=== PATIENT | male | born 1980 | race Caucasian/White ===

== ENCOUNTER 2023-03-03 14:58 | Inpatient (IN) ==
--- NOTE | 2023-03-03 15:44 | ED Triage Note ---
Date of Service March 03, 2023 Provider in Triage Author: Cassidy Virk History of Present Illness This patient was briefly evaluated while in triage. An abbreviated physical exam was performed. This patient is a 42-year-old Male who presents to the ED for evaluation of hematemesis, since 12 today. States vomit starts as black then progresses to BRB. Physical Exam CONSTITUTIONAL: in no acute pain or distress, resting comfortably SKIN: pink, warm, dry CARDIAC: regular rate and rhythm RESPIRATORY: in no respiratory distress, lungs clear to auscultation ABDOMEN: + TTP MSK: 5/5 strength throughout NEURO: no neuro deficits, alert and oriented x 3 Initial orders for labs and / or imaging were placed and patient was placed in the waiting area until a bed is available. Please see further documentation for the full ED course.
[2023-03-03 16:12] LABS: iSTAT Creatinine 0.9 mg/dl (0.6-1.3); iSTAT Hemoglobin 16.7 g/dl (14.0-18.0); iSTAT Ionized Calcium 1.13 mmol/l (1.12-1.32); iSTAT Potassium 3.7 mmol/L (3.3-5.0)
[2023-03-03] MEDS ORDERED: OPTIRAY 320 500ml IV ONE (16:14)
[2023-03-03 16:27] LABS: Basophils # (auto) 0.08 K/uL (0.00-0.20); Basophils % (auto) 0.7 %; Eosinophils # (auto) 0.01 K/uL (0.00-0.50); Eosinophils % (auto) 0.1 %; Hematocrit (blood only) 47.6 % (42.0-52.0); Hemoglobin 15.5 g/dl (14.0-18.0); Immature Granulocytes # (auto) 0.06 K/uL (0.01-0.20); Immature Granulocytes % (auto) 0.5 %; Mean Corpuscular Hemoglobin 27.8 pg (25.0-34.0); Mean Corpuscular Hgb Conc 32.6 g/dL (32.0-36.0); Mean Corpuscular Volume 85.5 fL (80.0-100.0); Mean Platelet Volume 10.9 fL (9.4-12.4); Monocytes # (auto) 0.48 K/uL (0.11-0.59); Neutrophils # (auto) 9.82 K/uL (1.40-6.50); Neutrophils % (auto) 80.7 %; Platelet Count 253 K/uL (130-400); RDW Coefficient of Variation 13.7 % (11.5-14.5); RDW Standard Deviation 42.8 fL (36.4-46.3); Red Blood Count 5.57 M/uL (4.70-6.10); White Blood Count 12.15 K/ul (4.8-10.8)
[2023-03-03 16:35] LABS: Albumin Globulin Ratio 1.7 (0.9-2); Albumin Level 4.5 gm/dl (3.4-5.0); BUN Creatinine Ratio 11.8 (10-20); Bilirubin,Total 0.8 mg/dl (0.2-1.0); Calcium 9.2 mg/dl (8.6-10.3); Creatinine Clr Calc Pharmacy 95.1 ml/min; Est GFR (African American) 103.9 ml/min; Est GFR (Non-African American) 89.6 ml/min; Globulin 2.7 gm/dl (2.5-4.0); Potassium 3.6 mmol/L (3.5-5.1); Total Protein 7.2 gm/dl (6.0-8.3)
--- NOTE | 2023-03-03 16:38 | CT Scan Report ---
CT abd pelvis IV con only CLINICAL HISTORY: Hematemesis TECHNIQUE: Helical axial images of the abdomen and pelvis were obtained and displayed. Automated dose lowering techniques and/or adjustment according to patient size were utilized for this exam. This e xam was performed with intravenous contrast. CT DOSE: 601. mGy.cm COMPARISON: None available at the time of this dictation. FINDINGS: Lower chest: No acute abnormality. Liver: Subcentimeter hypodensities in the liver are too small to characterize. Gallbladder and biliary tree: No calcified gallstones. Normal caliber wall. No intra- or extrahepatic biliary ductal dilation. Pancreas: Unremarkable, no focal lesions. Spleen: Unremarkable. Adrenals: Unremarkable. Kidneys and ureters: Unremarkable. Bladder: Diffuse homogeneous wall thickening is seen. Reproductive organs: Unremarkable. Bowel: The appendix is normal. Lymph nodes Retroperitoneal: Unremarkable. Pelvic: Unremarkable. Mesenteric: Unremarkable. Peritoneum: Normal. Vessels: Unremarkable. Abdominal wall: Unremarkable. Bones: Unremarkable. IMPRESSION: Thickening of the bladder is seen, correlation with urinalysis is recommended to exclude UTI. No evid ence of bowel obstruction or definite CT evidence of GI bleed. ACT 112: Negative or not required by law. Electronically signed by: Simeon Jones M.D. 03/03/2023 4:35 PM
[2023-03-03 16:46] LABS: Prothrombin Time 11.1 Seconds (9.0-12.0)
[2023-03-03] MEDS ORDERED: PANTOprazole 80 MG in DEXTROSE 5% 100 ML IV ONE (16:49)
[2023-03-03] MEDS ORDERED: PANTOPRAZOLE BOLUS/DRIP IV STA (16:49)
--- NOTE | 2023-03-03 17:10 | History & Physical Report ---
Date of Service March 03, 2023 Assessment & Plan (1) Vomiting blood: Plan: Coffee-ground, red emesis started at 1200 on 03/03 Patient reports he woke up feeling fine, and that he is unsure what triggered it; no prior episodes like this Patient denies NSAID, alcohol use; endorses marijuana use last night Hgb 15.5 and HCT 47.6 on arrival Repeat H&H ordered, pending Abdomen/pelvic CT revealed NAF (no CT evidence of GI bleed) LFTs WNL PT/INR WNL Lipase WNL BUN/Cr 11.8 Keep n.p.o. for now Started on pantoprazole drip in the ED Continue pantoprazole 40 mg IV BID Zofran 4 mg IV q6h as needed for nausea; QTc 397 Acetaminophen 1000 mg IV q8h as needed for pain/fever A.m. CBC, BMP (2) Bradycardia: Plan: EKG revealed marked sinus bradycardia at 40 bpm; QTc 397 Plan [facility]: [facility] Keep n.p.o. for now, then advance to liquid diet as tolerated VTE PPx: SCDs (hold chemical DVT PPx in the setting of ground coffee emesis) History of Present Illness Chief Complaint: Acute onset of coffee-ground emesis Primary Care Provider: NO PCP Joaquin is a 72-year-old male without significant PMH. He presented for vomiting blood that started around 1200 on 03/03. The patient reports that the emesis is "coffee-ground" in appearance initially, but then became bright red. He has had no prior experiences like this. No recent changes in diet. He reports that he had chicken and waffles the night of 03/02, and woke up fine the morning of 03/03. He had no food on 03/03, only coffee. No recent NSAID use. No sick contacts. No tick bites. No alcohol use. Patient is an everyday tobacco cigarette smoker; 0.5 PPD; no vaping; however, he endorses occasional marijuana use, with last use being last night. No history of throwing up from marijuana use. He denies other recreational drug use. Endorses ongoing epigastric pain and nausea since the onset of symptoms. Patient is bradycardic at 43 bpm at time of admission; vitals otherwise stable. ED course: Pantoprazole 40 mg IV Protonix drip ROS: Patient endorses BASS before bed the past couple nights, epigastric pain, N/V, hematemesis, diarrhea (started today at 1100), Patient denies fever, sweating, chills, rashes, bruising, CP, pleuritic CP, SOB, constipation, back pain, blood in stool, urinary s/s, burning with urination, or numbness/tingling going down the legs. Patient denies PMH of SC, DVT/PE, CVA, diabetes, or prior abdominal surgeries Allergies Allergy/AdvReac Type Severity Reaction Status Date / Time No Known Allergies Allergy Unverified 03/03/23 18:12 Home Medications Medication Instructions Recorded Confirmed Type No Known Home Medications 03/03/23 03/03/23 History Past Med/Surg History Medical History No pertinent past medical history No pertinent family history Surgical History No pertinent past surgical history Social History Smoking Status: Current every day smoker Tobacco Type: Cigarettes Second Hand Exposure: No; Do You Dip or Chew Tobacco: No; Tobacco Cessation Education Requested by Patient: No Hx Alcohol Use: No Hx Substance Use: Yes Last Used Substance: Days (ago) Preferred Language: Yoruba Communication Ability: Effective Skull Grinder Required: No Beliefs That Will Affect Care: None Current Living Situation: Family Other Information That Helps Us Care for You: No Feels Safe at Home: Yes Safety Concerns: Feels Safe At This Time Assistive Devices: None Review of Systems Review of Systems: See HPI above Physical Exam Physical Exam: General: Patient is pale and diaphoretic; mild distress secondary to nausea and abdominal cramping; cooperative; SpO2 100% on RA HEENT: normocephalic, atraumatic; no scleral icterus; PERRLA w/ EOMs intact; moist mucus membrane; vision and hearing grossly intact Neck: supple; no lymphadenopathy; trachea midline Skin: warm, moist without signs of tenting; no cyanosis; no rashes, bruising, lesions, or erythema noted CV: chest wall NTP; regular rhythm, bradycardic in the 40 bpm range; S1/S2 normal; no murmurs/rubs/gallops; pulses intact and symmetric at radial, DP, and PT Lungs: no acute respiratory distress; symmetrical chest wall expansion; clear breath sounds across all lung dickens w/o adventitious sounds; no wheezing ABD: Soft, NTP; BS present; no rebound/guarding; no distention; negative CVA tenderness; no bruising or rashes noted on the abdomen or back MSK: no tics or fasciculations; no edema noted in the LEs b/l, nonerythematous Neuro: A&Ox3; normal mood and affect; fluent speech; sensation grossly intact in LEs B/L Results & Data Results & Data Vital Signs (Past 12 Hours) Vital Signs Temp Pulse Pulse Resp BP BP Pulse Ox 03/03/23 16:38 43 L 03/03/23 16:24 99 03/03/23 16:24 50 L 18 130/86 99 03/03/23 15:41 36.5 C 56 L 18 127/71 99 O2 Del Method 03/03/23 16:38 03/03/23 16:24 Room Air 03/03/23 16:24 Room Air 03/03/23 15:41 Room Air Laboratory Results Abnormal lab results 03/03/23 03/03/23 Range/Units 15:55 16:00 WBC 12.15 H (4.8-10.8) K/ul Neut # (Auto) 9.82 H (1.40-6.50) K/uL POC Total CO2 23 L (24-31) mmol/L Glucose 167 H (70-99(Fasting)) mg/dl POC Glucose (other) 159 H (70-99) mg/dl Diagnostic Findings Abdomen/Pelvis CT 03/03/23 15:45 CT abd pelvis IV con only CLINICAL HISTORY: Hematemesis TECHNIQUE: Helical axial images of the abdomen and pelvis were obtained and displayed. Automated dose lowering techniques and/or adjustment according to patient size were utilized for this exam. This exam was performed with intravenous contrast. CT DOSE: 601. mGy.cm COMPARISON: None available at the time of this dictation. FINDINGS: Lower chest: No acute abnormality. Liver: Subcentimeter hypodensities in the liver are too small to characterize. Gallbladder and biliary tree: No calcified gallstones. Normal caliber wall. No intra- or extrahepatic biliary ductal dilation. Pancreas: Unremarkable, no focal lesions. Spleen: Unremarkable. Adrenals: Unremarkable. Kidneys and ureters: Unremarkable. Bladder: Diffuse homogeneous wall thickening is seen. Reproductive organs: Unremarkable. Bowel: The appendix is normal. Lymph nodes Retroperitoneal: Unremarkable. Pelvic: Unremarkable. Mesenteric: Unremarkable. Peritoneum: Normal. Vessels: Unremarkable. Abdominal wall: Unremarkable. Bones: Unremarkable. IMPRESSION: Thickening of the bladder is seen, correlation with urinalysis is recommended to exclude UTI. No evidence of bowel obstruction or definite CT evidence of GI bleed. ACT 112: Negative or not required by law. Electronically signed by: Simeon Jones M.D. 03/03/2023 4:35 PM Code Status & VTE Plan Code Status Full code VTE Prophylaxis Plan VTE Prophylaxis will be ordered: Yes Supervising Physician Co-Signing Physician Notes I personally saw and examined the patient. I independently reviewed the labs, EKG, imaging, problem list, medication list, past medical history and family history. I verified all burleson points and agree with Stefan Caruso PA-C with the following exceptions and/or additions: 42 year old male presents to the ER with coffee ground emesis. No recurrent episodes of vomiting. Current vomiting episode just started today lasting for several hours with associated diarrhea. No longer actively vomiting when seen. O/E HS bradycardia, regular rhythm, no murmurs, Chest CTAB, Abdo SNT A/P Coffee-ground emesis - hemoglobin stable x2. No longer actively vomiting. Continue on pantoprazole IV drip. LR ordered given elevated specific gravity and appears dry on exam. Suspected gastroenteritis - suspect food poisoning vs. viral gastroenteritis causing his vomiting episode. Stool PCR ordered if ongoing diarrhea but suspect this is a self limiting episode. Sinus bradycardia - suspect related ot vagal nerve stimulation with vomiting, monitor on telemetry for high degree AV block overnight but generally of low concern PG Care Time/CCT Total # of Minutes Spent Total Time Spent with Patient: Total time spent is greater than 50% in coordination of care (as documented) at patient's floor/unit and/or counseling patient: [place] [address] INT INP/OBS CARE 2/55MIN Patient Type New Medical Decision Making Moderate Complexity Diagnoses Vomiting blood K92.0 Bradycardia R00.1
[2023-03-03] MEDS ORDERED: PANTOprazole 40 MG in DEXTROSE 5% MINI-B 100 ML IV SCH (17:15)
[2023-03-03 17:37] LABS: Appearance Urine Clear (Clear); Bacteria Urine Automated Negative (Negative); Bilirubin Urine Negative (Negative); Blood Urine Negative (Negative); Color Urine Yellow; Epithelial Cell Urine Auto 0-5 /lpf (0-5); Glucose Urine UA Negative (Negative); Ketones Urine 3+ (Negative); Leukocyte Esterase Urine Negative (Negative); Nitrite Urine Negative (Negative); Protein Urine Trace (Negative); RBC Urine Automated 0-4 /hpf (0-4); Specific Gravity Urine > 1.045 (1.000-1.030); Urobilinogen Urine Negative (Negative); WBC Urine Automated 0 /hpf (0-5); pH Urine 6.5 (4.5-7.5)
[2023-03-03] MEDS ORDERED: ONDANSETRON INJ 2 MG/ML 2 ML VIAL IV PRN ×3 (17:50→21:30)
[2023-03-03 18:03] LABS: Magnesium 1.8 mg/dl (1.7-2.4)
--- NOTE | 2023-03-03 18:29 | Emergency Department Note ---
History of Present Illness General Chief complaint: GI Assessment Stated complaint: vomit blood Time Seen by Provider: 03/03/23 16:19 History of Present Illness Provider Complaint: + coffee ground emesis and + gross hematemesis Onset (ago): 5 hour(s) Pain Consistency: + intermittent Severity: moderate Maximum Pain Intensity: 6 Relieved By: + none Exacerbated By: + vomiting Context: no history of GI bleed, no liver disease, no hemorrhoids, no swallowed FB, no rectal trauma, no alcohol abuse, no known esophageal varices or no anticoagulant use Associated symptoms: + abdominal pain, + nausea and + vomiting; no fever or no chills Home Medications Medication Instructions Recorded Confirmed Type No Known Home Medications 03/03/23 03/03/23 History Allergies Allergy/AdvReac Type Severity Reaction Status Date / Time No Known Allergies Allergy Unverified 03/03/23 18:12 Past Med/Surg History Medical History No pertinent past medical history No pertinent family history Surgical History No pertinent past surgical history Social History Smoking Status: Current every day smoker Tobacco Type: Cigarettes Second Hand Exposure: No; Do You Dip or Chew Tobacco: No; Tobacco Cessation Education Requested by Patient: No Hx Alcohol Use: No Hx Substance Use: Yes Last Used Substance: Days (ago) Preferred Language: Greenlandic Communication Ability: Effective Field Marketing Lead Required: No Beliefs That Will Affect Care: None Current Living Situation: Family Other Information That Helps Us Care for You: No Feels Safe at Home: Yes Safety Concerns: Feels Safe At This Time Assistive Devices: None Physical Exam 2 Vital Signs: Vital Signs - 24 hr 03/03/23 15:41 03/03/23 16:24 03/03/23 16:24 Temperature 36.5 C Temperature Source Oral Pulse Rate 56 L Pulse Rate [Apical ] 50 L Pulse Rhythm [Apic al] Regular Respiratory Rate 18 18 Respiratory Effort / Characteristics Non-Labored Non-Labored Sponta neous Respiratory Depth Normal Normal Respiratory Patter n Regular Regular Blood Pressure 127/71 Blood Pressure [Ri ght Arm] 130/86 Blood Pressure Terri n 89 Blood Pressure Terri n [Right Arm] 100 Blood Pressure Pos ition [Right Arm] Lying Pulse Oximetry 99 99 99 Oxygen Delivery Me thod Room Air Room Air Room Air Sepsis Recent Feve r Within 48 Hours No Sepsis New/Unexpla ined Change in Men marcie Status N/A Sepsis Action Take n by Nursing No Action Required 03/03/23 16:38 Temperature Temperature Source Pulse Rate 43 L Pulse Rate [Apical ] Pulse Rhythm [Apic al] Respiratory Rate Respiratory Effort / Characteristics Respiratory Depth Respiratory Patter n Blood Pressure Blood Pressure [Ri ght Arm] Blood Pressure Terri n Blood Pressure Terri n [Right Arm] Blood Pressure Pos ition [Right Arm] Pulse Oximetry Oxygen Delivery Me thod Sepsis Recent Feve r Within 48 Hours Sepsis New/Unexpla ined Change in Men marcie Status Sepsis Action Take n by Nursing Physical Exam: Physical Exam GENERAL: She is oriented to person, place, and time. She appears well-developed and well-nourished. She does not appear distressed. HENT: Exam performed. -Head: Normocephalic and atraumatic. -Right Ear: External ear normal. No mastoid erythema -Left Ear: External ear normal. No mastoid erythema -Mouth/Throat: The oropharynx is clear and moist. No trismus in the jaw. No dental abscesses or uvula swelling. No oropharyngeal exudate or tonsillar abscesses. EYES: Conjunctivae and EOM are normal.Right eye exhibits no discharge. Left eye exhibits no discharge. No scleral icterus. NECK: Normal range of motion. Neck supple. No JVD present. No tracheal deviation and normal range of motion present. CV: Normal rate, regular rhythm, normal heart sounds and intact distal pulses. There is no peripheral edema. Palpable radial pulses bue. PULM/CHEST: Effort normal and breath sounds normal. No respiratory distress. No stridor. She has no wheezes. She has no rales. -Chest Wall: She exhibits no tenderness. ABD: The abdomen is soft. Bowel sounds are normal. She has no distension. No mass is present. There is no tenderness. There is no rebound, no guarding, no Morrow's sign and no tenderness at McBurney's point. Rovsig negative MUSC/SKEL: Normal range of motion. There is no peripheral edema, tenderness or deformity. NEURO: Motor and sensation grossly intact. SKIN: Skin is warm and dry. She is not diaphoretic. PSYCH: She has a normal mood and affect. Behavior is normal. Judgment and thought content normal. Course Course 1619: The patient was evaluated in room . A complete history and physical exam was performed Cardiac monitoring: An order was placed for continuous cardiac monitoring. The monitor shows a rate of 40 with sinus rhythm interpreted by il 1715: Vital signs stable. Labs and imaging within normal limits. Patient is having coffee-ground emesis in the emergency department. Protonix bolus and drip started on the patient. [facility]. Administered Medications Acetaminophen (Ofirmev) 1,000 mg in 100 mls @ 400 mls/hr IV Q8H PRN PRN Reason: Pain or Fever Stop: 03/06/23 19:26 Last Infusion: 03/03/23 21:37 Dose: Infused Documented By: Admin: 03/03/23 21:18 Dose: 400 mls/hr Documented By: GANGA Lactated Ringer's (Lr) 1,000 mls @ 100 mls/hr IV .Q10H [facility] Stop: 04/02/23 22:14 Last Admin: 03/03/23 23:04 Dose: 100 mls/hr Documented By: GANGA Discontinued Medications Pantoprazole Sodium 80 mg/ (Dextrose) 120 mls @ 480 mls/hr IV NOW ONE Stop: 03/03/23 17:03 Last Infusion: 03/03/23 17:34 Dose: Infused Documented By: Admin: 03/03/23 17:14 Dose: 480 mls/hr Documented By: PEARL Pantoprazole Sodium 40 mg/ (Dextrose) 100 mls @ 20 mls/hr IV Q5H [facility] Stop: 04/02/23 17:14 Last Infusion: 03/03/23 19:38 Dose: Infused Documented By: JUAN ANTONIO Admin: 03/03/23 17:32 Dose: 8 mg/hr, 20 mls/hr Documented By: PEARL Prochlorperazine 10 mg/ (Syringe) 10 mls @ 5 mls/min IV ONE ONE Stop: 03/03/23 21:46 Last Admin: 03/03/23 21:48 Dose: 5 mls/min Documented By: GANGA Ioversol (Optiray 320 500ml) 94 ml IV ONCE ONE Stop: 03/03/23 16:15 Last Admin: 03/03/23 16:15 Dose: 94 ml Documented By: BROCK Ondansetron HCl (Ondansetron Inj 2 Mg/Ml 2 Ml Vial) 4 mg IV Q6H PRN PRN Reason: Nausea And Vomiting Stop: 04/02/23 17:49 Last Admin: 03/03/23 18:03 Dose: 4 mg Documented By: PEARL Pantoprazole Sodium (Pantoprazole Bolus/Drip) 1 each IV NOW STA Stop: 03/03/23 16:50 Last Admin: 03/03/23 17:14 Dose: Not Given Documented By: PEARL Medical Decision Making Laboratory Data Attestation: I reviewed the patient's lab results. 03/03/23 20:26 03/03/23 15:55 Lab Results 03/03/23 03/03/23 03/03/23 Range/Units 15:55 16:00 17:17 WBC 12.15 H (4.8-10.8) K/ul RBC 5.57 (4.70-6.10) M/uL Hgb 15.5 (14.0-18.0) g/dl POC Hgb 16.7 (14.0-18.0) g/dl Hct 47.6 (42.0-52.0) % POC Hct 49 (42-52) % MCV 85.5 (80.0-100.0) fL MCH 27.8 (25.0-34.0) pg MCHC 32.6 (32.0-36.0) g/dL RDW Std Deviation 42.8 (36.4-46.3) fL RDW Coeff of Rhea 13.7 (11.5-14.5) % Plt Count 253 (130-400) K/uL MPV 10.9 (9.4-12.4) fL Immature Gran % (Auto) 0.5 % Neut % (Auto) 80.7 % Lymph % (Auto) 14.0 % [place] % (Auto) 4.0 % Eos % (Auto) 0.1 % Baso % (Auto) 0.7 % Neut # (Auto) 9.82 H (1.40-6.50) K/uL Lymph # (Auto) 1.70 (1.20-3.40) K/uL [place] # (Auto) 0.48 (0.11-0.59) K/uL Eos # (Auto) 0.01 (0.00-0.50) K/uL Baso # (Auto) 0.08 (0.00-0.20) K/uL Immature Gran # (Auto) 0.06 (0.01-0.20) K/uL PT 11.1 (9.0-12.0) Seconds INR 1.0 (0.9-1.1) POC Sodium 139 (135-144) mmol/L Sodium 137 (136-145) mmol/L POC Potassium 3.7 (3.3-5.0) mmol/L Potassium 3.6 (3.5-5.1) mmol/L POC Chloride 104 (101-112) mmol/L Chloride 104 (98-107) mmol/L Carbon Dioxide 24 (21-32) mmol/L POC Total CO2 23 L (24-31) mmol/L Anion Gap 9 (3-11) POC Anion Gap 17.0 (16-25) mmol/L POC BUN 10 (7-18) mg/dl BUN 12 (6-23) mg/dl Creatinine 1.02 (0.6-1.4) mg/dl POC Creatinine 0.9 (0.6-1.3) mg/dl Est Cr Clr Drug Dosing 95.1 ml/min Est GFR ( Amer) 103.9 ml/min Est GFR (Non-Af Amer) 89.6 ml/min BUN/Creatinine Ratio 11.8 (10-20) Glucose 167 H (70-99(Fasting)) mg/dl POC Glucose (other) 159 H (70-99) mg/dl Calcium 9.2 (8.6-10.3) mg/dl POC Ioniz Calcium [place] 1.13 (1.12-1.32) mmol/l Magnesium 1.8 (1.7-2.4) mg/dl Total Bilirubin 0.8 (0.2-1.0) mg/dl AST 16 (13-39) U/L ALT 11 (7-52) U/L Alkaline Phosphatase 40 (34-104) U/L Total Protein 7.2 (6.0-8.3) gm/dl Albumin 4.5 (3.4-5.0) gm/dl Globulin 2.7 (2.5-4.0) gm/dl Albumin/Globulin Ratio 1.7 (0.9-2) Lipase 27 (11-82) U/L Urine Color Yellow Urine Appearance Clear (Clear) Urine pH 6.5 (4.5-7.5) Ur Specific [place] > 1.045 H (1.000-1.030) Urine Protein Trace H (Negative) Urine Glucose (UA) Negative (Negative) Urine Ketones 3+ H (Negative) Urine Blood Negative (Negative) Urine Nitrite Negative (Negative) Urine Bilirubin Negative (Negative) Urine Urobilinogen Negative (Negative) Ur Leukocyte Esterase Negative (Negative) Urine WBC (Auto) 0 (0-5) /hpf Urine RBC (Auto) 0-4 (0-4) /hpf U Hyaline Cast (Auto) 1-5 (0-5) /lpf U Epithel Cells (Auto) 0-5 (0-5) /lpf Urine Bacteria (Auto) Negative (Negative) Blood Type A Negative Antibody Screen NEGATIVE Imaging Data Radiologist's Impression: Abdomen/Pelvis CT 03/03/23 15:45 CT abd pelvis IV con only CLINICAL HISTORY: Hematemesis TECHNIQUE: Helical axial images of the abdomen and pelvis were obtained and displayed. Automated dose lowering techniques and/or adjustment according to patient size were utilized for this exam. This exam was performed with intravenous contrast. CT DOSE: 601. mGy.cm COMPARISON: None available at the time of this dictation. FINDINGS: Lower chest: No acute abnormality. Liver: Subcentimeter hypodensities in the liver are too small to characterize. Gallbladder and biliary tree: No calcified gallstones. Normal caliber wall. No intra- or extrahepatic biliary ductal dilation. Pancreas: Unremarkable, no focal lesions. Spleen: Unremarkable. Adrenals: Unremarkable. Kidneys and ureters: Unremarkable. Bladder: Diffuse homogeneous wall thickening is seen. Reproductive organs: Unremarkable. Bowel: The appendix is normal. Lymph nodes Retroperitoneal: Unremarkable. Pelvic: Unremarkable. Mesenteric: Unremarkable. Peritoneum: Normal. Vessels: Unremarkable. Abdominal wall: Unremarkable. Bones: Unremarkable. IMPRESSION: Thickening of the bladder is seen, correlation with urinalysis is recommended to exclude UTI. No evidence of bowel obstruction or definite CT evidence of GI bleed. ACT 112: Negative or not required by law. Electronically signed by: Simeon Jones M.D. 03/03/2023 4:35 PM Chest X-Ray 03/03/23 17:10 XR chest 1V portable CLINICAL HISTORY: vomiting blood TECHNIQUE: Single frontal radiograph of the chest was obtained. Comparison: None available at the time of this dictation. FINDINGS: No lines and tubes are seen. The cardiomediastinal silhouette is normal. The lungs are clear. No evidence of pleural effusion or pneumothorax. IMPRESSION: No acute chest disease. ACT 112: Negative or not required by law. Electronically signed by: Simeon Jones M.D. 03/03/2023 6:46 PM [facility] Narrative 1619: The patient was evaluated in room . A complete history and physical exam was performed Cardiac monitoring: An order was placed for continuous cardiac monitoring. The monitor shows a rate of 40 with sinus rhythm interpreted by il 1715: Vital signs stable. Labs and imaging within normal limits. Patient is having coffee-ground emesis in the emergency department. Protonix bolus and drip started on the patient. [facility] PJ notified. Impression & Plan Upper gastrointestinal hemorrhage Discharge Plan Visit Data Chief Complaint: GI Assessment Stated Complaint: vomit blood ED Provider: Phoenix Miranda Discharge Problem: Upper gastrointestinal hemorrhage Patient Disposition: Admitted As Inpatient Discharge Instructions Interventions: ED Discharge Assessment Last Done: 03/03/23 19:27
[2023-03-03 18:33] LABS: Gastric Occult Blood Positive (Negative); pH Gastric Fluid 2
--- NOTE | 2023-03-03 18:47 | XRay Report ---
XR chest 1V portable CLINICAL HISTORY: vomiting blood TECHNIQUE: Single frontal radiograph of the chest was obtained. Comparison: None available at the time of this dictation. FINDINGS: No lines and tubes are seen. The cardiomediastinal silhouette is normal. The lungs are clear. No evid ence of pleural effusion or pneumothorax. IMPRESSION: No acute chest disease. ACT 112: Negative or not required by law. Electronically signed by: Simeon Jones M.D. 03/03/2023 6:46 PM
[2023-03-03] MEDS ORDERED: ACETAMINOPHEN 1,000 MG/100 ML VIAL IV PRN (19:27)
[2023-03-03 20:38] LABS: Hematocrit (blood only) 44.2 % (42.0-52.0); Hemoglobin 14.9 g/dl (14.0-18.0)
[2023-03-03] MEDS ORDERED: PROCHLORPERAZINE 10 MG in SYRINGE 8 ML IV ONE (21:45)
[2023-03-03] MEDS: LACTATED RINGER'S 1,000 ML IV SCH (23:04)
[2023-03-03] MEDS ORDERED: LACTATED RINGER'S 1,000 ML IV ONE (23:29)
[2023-03-04] MEDS: LACTATED RINGER'S 1,000 ML IV SCH ×2 (01:37→12:25)
[2023-03-04 04:54] LABS: Basophils # (auto) 0.03 K/uL (0.00-0.20); Basophils % (auto) 0.3 %; Eosinophils # (auto) 0.01 K/uL (0.00-0.50); Eosinophils % (auto) 0.1 %; Hematocrit (blood only) 42.7 % (42.0-52.0); Hemoglobin 14.6 g/dl (14.0-18.0); Immature Granulocytes # (auto) 0.04 K/uL (0.01-0.20); Immature Granulocytes % (auto) 0.3 %; Lymphocytes # (auto) 2.59 K/uL (1.20-3.40); Lymphocytes % (auto) 21.6 %; Mean Corpuscular Hemoglobin 28.1 pg (25.0-34.0); Mean Corpuscular Hgb Conc 34.2 g/dL (32.0-36.0); Mean Corpuscular Volume 82.3 fL (80.0-100.0); Monocytes # (auto) 0.93 K/uL (0.11-0.59); Monocytes % (auto) 7.8 %; Neutrophils # (auto) 8.39 K/uL (1.40-6.50); Neutrophils % (auto) 69.9 %; Platelet Count 245 K/uL (130-400); RDW Coefficient of Variation 13.7 % (11.5-14.5); RDW Standard Deviation 40.5 fL (36.4-46.3); Red Blood Count 5.19 M/uL (4.70-6.10); White Blood Count 11.99 K/ul (4.8-10.8)
[2023-03-04 05:03] LABS: Calcium 8.7 mg/dl (8.6-10.3); Creatinine Clr Calc Pharmacy 102.4 ml/min; Est GFR (African American) 119.2 ml/min; Est GFR (Non-African American) 102.9 ml/min; Potassium 3.9 mmol/L (3.5-5.1)
[2023-03-04] MEDS: PANTOprazole 40 MG in SYRINGE 0 ML IV SCH ×2 (08:28→21:01)
--- NOTE | 2023-03-04 11:11 | Gastrointestinal Consultation ---
Date of Consultation March 04, 2023 Assessment & Plan (1) Vomiting blood: Patient with sudden onset of hematemesis yesterday after lunch. His last episode of vomiting was last evening and he tells me he feels much better today. hgb wnl. Case was discussed with Dr. Lagos. - we discussed an EGD but since he is feeling better, the patient prefers to do this as an outpatient. I have set him up for 03/24/23 as outpatient. - continue with current medications. Would recommend when he is discharged home that he start on protonix 40mg bid. - can advance diet and see how he does. clears will be started. - we discussed working on ceasing tobacco and marijuana use. Supervising Physician Co-Signing Physician Notes Agree with MADDISON Reyes as above Abd: Soft, NT, ND, +BS Continue current therapy and supportive care Will set up outpatient EGD History of Present Illness Reason for Consultation: hematemesis Requesting Physician: Herber Mcadams MD Attending Physician: Herber Mcadams History of Present Illness Patient is a 72 year old male without significant past medical history who presented to the ED for episodes of vomiting blood that started around 1200 on 03/03. He tells me that this started suddenly after lunch. The patient reports that the emesis was coffee ground in appearance with some blood. He has had no prior experiences like this. No recent changes in diet. He denies any nsaid use. No alcohol use. Patient is an everyday tobacco cigarette smoker with smoking 3/4 PPD. he also endorses occasional marijuana use, with last use being evening prior to admission. He denies other recreational drug use. He tells me that yesterday he did have some mild epigastric discomfort and nausea but that this has resolved. He tells me that his last episode of vomiting was around 8 pm last evening. He tells me he did have some dark brown stools yesterday but reports his stools are back to baseline today. He tells me he feels much better today. Hgb stable and wnl. He has never had an EGD. rest of GI ros unremarkable. Allergies Allergy/AdvReac Type Severity Reaction Status Date / Time No Known Allergies Allergy Unverified 03/03/23 18:12 Home Medications Medication Instructions Recorded Confirmed Type No Known Home Medications 03/03/23 03/03/23 History Patient History Medical History No pertinent past medical history No pertinent family history Surgical History No pertinent past surgical history Social History Smoking Status: Current every day smoker Tobacco Type: Cigarettes Second Hand Exposure: No; Do You Dip or Chew Tobacco: No; Hx Alcohol Use: No Hx Substance Use: Yes Last Used Substance: Days (ago) Preferred Language: Yi Communication Ability: Effective International First Officer Required: No Beliefs That Will Affect Care: None Current Living Situation: Family Feels Safe at Home: Yes Assistive Devices: None Review of Systems Review of Systems: All systems reviewed & are unremarkable except as noted in HPI & below Physical Exam Constitutional: WD/WN, vitals as above Respiratory: normal respiratory effort, lungs clear to auscultation Cardiovascular: RRR, no murmur, no edema Gastrointestinal (Abdomen): normal bowel sounds, soft, nontender, no hepatosplenomegaly Skin: no rashes, warm and dry Psychiatric: Orientation: alert and oriented x 3 Affect: euthymic affect Results & Data Vital Signs (Past 12 Hours) Vital Signs Temp Pulse Pulse Pulse Resp BP Pulse Ox 03/04/23 07:55 97.9 F 61 18 123/56 L 97 03/04/23 06:00 62 03/04/23 04:00 98.8 F 75 18 111/62 94 03/03/23 23:33 98.2 F 60 18 109/59 L 95 O2 Del Method 03/04/23 07:55 Room Air 03/04/23 06:00 03/04/23 04:00 Room Air 03/03/23 23:33 Room Air PG Care Time/CCT Total # of Minutes Spent Total Time Spent with Patient: Total time spent is greater than 50% in coordination of care (as documented) at patient's floor/unit and/or counseling patient: Coding Level of Care Code 62846 OFFICE CONSULT LVL 3/30M Diagnoses Vomiting blood K92.0 Time Spent (min) 32
[2023-03-04 11:21] LABS: Adenovirus F 40/41 PCR Not Detected (NotDetected); Astrovirus PCR Not Detected (NotDetected); Campylobacter PCR Not Detected (NotDetected); Cryptosporidium PCR Not Detected (NotDetected); Cyclospora cayetanensis PCR Not Detected (NotDetected); Entamoeba histolytica PCR Not Detected (NotDetected); Enteroaggregative E.coli(EAEC) Not Detected (NotDetected); Enteropathogenic E.coli (EPEC) Not Detected (NotDetected); Enterotoxigenic E.coli (ETEC) Not Detected (NotDetected); Giardia lamblia PCR Not Detected (NotDetected); Norovirus GI/GII PCR Not Detected (NotDetected); Plesiomonas shigelloides PCR Not Detected (NotDetected); Rotavirus A PCR Not Detected (NotDetected); Salmonella PCR Not Detected (NotDetected); Sapovirus PCR Not Detected (NotDetected); Shiga-like Toxin E.coli (STEC) Not Detected (NotDetected); Shigella/Enteroinvasive E.coli Not Detected (NotDetected); Vibrio cholerae PCR Not Detected (NotDetected); Vibrio species PCR Not Detected (NotDetected); Yersinia enterocolitica PCR Not Detected (NotDetected)
[2023-03-04 17:35] LABS: Hematocrit (blood only) 41.5 % (42.0-52.0); Hemoglobin 14.3 g/dl (14.0-18.0)
--- NOTE | 2023-03-04 22:33 | Hospitalist Progress Note ---
Date of Service March 04, 2023 Assessment & Plan (1) Vomiting blood: Plan: Coffee-ground, red emesis started at 1200 on 03/03 Patient reports he woke up feeling fine, and that he is unsure what triggered it; no prior episodes like this Patient denies NSAID, alcohol use; endorses marijuana use last night Hgb 15.5 and HCT 47.6 on arrival Repeat hemoglobin has been stable. Abdomen/pelvic CT revealed NAF (no CT evidence of GI bleed) LFTs WNL PT/INR WNL Lipase WNL BUN/Cr 11.8 will advance diet: fluids, and low fiber in AM. Continue pantoprazole 40 mg IV BID (2) Bradycardia: Plan: EKG revealed marked sinus bradycardia at 40 bpm; QTc 397 Plan Disposition: Admit to [facility] telemetry Full code Admission and Anticipated Discharge Date Admission Date: March 03, 2023 Subjective 42 yo male reports no new symptoms. Review of Systems Review of Systems: All systems reviewed & are unremarkable except as noted in HPI & below Physical Exam Physical Exam: General: Patient is lying in bed and in no acute distress. HEENT: normocephalic, atraumatic; no scleral icterus; CV: regular rhythm, bradycardic in the 40 bpm range; Lungs: no acute respiratory distress; symmetrical chest wall expansion; clear breath sounds across all lung dickens w/o adventitious sounds; no wheezing ABD: Soft, NTP; BS present; Neuro: A&Ox3 Results & Data Results & Data Vital Signs (Past 12 Hours) Vital Signs Temp Pulse Pulse Resp BP BP Pulse Ox 03/04/23 19:00 36.6 C 70 18 123/75 96 03/04/23 14:41 36.7 C 85 18 115/66 99 03/04/23 14:00 55 L 03/04/23 11:05 36.8 C 61 18 120/66 97 O2 Del Method 03/04/23 19:00 Room Air 03/04/23 14:41 Room Air 03/04/23 14:00 03/04/23 11:05 Room Air PG Care Time/CCT Total # of Minutes Spent Total Time Spent with Patient: Total time spent is greater than 50% in coordination of care (as documented) at patient's floor/unit and/or counseling patient: Coding Level of Care Code 30981 SUB INP/OBS CARE 2/35MIN Diagnoses Vomiting blood K92.0 Bradycardia R00.1
[2023-03-05 06:52] LABS: Basophils # (auto) 0.08 K/uL (0.00-0.20); Basophils % (auto) 0.7 %; Eosinophils # (auto) 0.08 K/uL (0.00-0.50); Eosinophils % (auto) 0.7 %; Hematocrit (blood only) 45.5 % (42.0-52.0); Immature Granulocytes # (auto) 0.06 K/uL (0.01-0.20); Immature Granulocytes % (auto) 0.5 %; Lymphocytes # (auto) 2.98 K/uL (1.20-3.40); Lymphocytes % (auto) 26.2 %; Mean Corpuscular Hemoglobin 27.9 pg (25.0-34.0); Mean Corpuscular Volume 84.6 fL (80.0-100.0); Mean Platelet Volume 10.9 fL (9.4-12.4); Monocytes # (auto) 1.04 K/uL (0.11-0.59); Monocytes % (auto) 9.2 %; Neutrophils # (auto) 7.12 K/uL (1.40-6.50); Neutrophils % (auto) 62.7 %; Platelet Count 217 K/uL (130-400); RDW Coefficient of Variation 13.7 % (11.5-14.5); RDW Standard Deviation 42.5 fL (36.4-46.3); Red Blood Count 5.38 M/uL (4.70-6.10); White Blood Count 11.36 K/ul (4.8-10.8)
[2023-03-05 07:42] LABS: BUN Creatinine Ratio 12.8 (10-20); Calcium 8.5 mg/dl (8.6-10.3); Creatinine Clr Calc Pharmacy 98.9 ml/min; Est GFR (African American) 114.6 ml/min; Est GFR (Non-African American) 98.9 ml/min; Potassium 3.8 mmol/L (3.5-5.1)
[2023-03-05] MEDS: PANTOprazole 40 MG in SYRINGE 0 ML IV SCH (07:51)
--- NOTE | 2023-03-05 11:02 | Discharge Summary ---
Date of Service March 05, 2023 Admission HPI Per Admitting Provider Joaquin is a 72-year-old male without significant PMH. He presented for vomiting blood that started around 1200 on 03/03. The patient reports that the emesis is "coffee-ground" in appearance initially, but then became bright red. He has had no prior experiences like this. No recent changes in diet. He reports that he had chicken and waffles the night of 03/02, and woke up fine the morning of 03/03. He had no food on 03/03, only coffee. No recent NSAID use. No sick contacts. No tick bites. No alcohol use. Patient is an everyday tobacco cigarette smoker; 0.5 PPD; no vaping; however, he endorses occasional marijuana use, with last use being last night. No history of throwing up from marijuana use. He denies other recreational drug use. Endorses ongoing epigastric pain and nausea since the onset of symptoms. Patient is bradycardic at 43 bpm at time of admission; vitals otherwise stable. ED course: Pantoprazole 40 mg IV Protonix drip ROS: Patient endorses BASS before bed the past couple nights, epigastric pain, N/V, hematemesis, diarrhea (started today at 1100), Patient denies fever, sweating, chills, rashes, bruising, CP, pleuritic CP, SOB, constipation, back pain, blood in stool, urinary s/s, burning with urination, or numbness/tingling going down the legs. Patient denies PMH of IL, DVT/PE, CVA, diabetes, or prior abdominal surgeries Principal Diagnosis vomiting blood Discharge Exam General: Patient is lying in bed and in no acute distress. HEENT: normocephalic, atraumatic; no scleral icterus; CV: regular rhythm, bradycardic in the 40 bpm range; Lungs: no acute respiratory distress; symmetrical chest wall expansion; clear breath sounds across all lung dickens w/o adventitious sounds; no wheezing ABD: Soft, NTP; BS present; Neuro: A&Ox3 Discharge Data Allergies Allergy/AdvReac Type Severity Reaction Status Date / Time No Known Allergies Allergy Unverified 03/03/23 18:12 Consultations 03/03/23 16:57 ED Decision to Admit Stat 03/04/23 10:16 Consult Gastroenterology Routine Ordered Studies 03/03/23 15:45 CT abd pelvis IV con only Stat Hospital Course (1) Vomiting blood: Coffee-ground, red emesis started at 1200 on 03/03 Patient reports he woke up feeling fine, and that he is unsure what triggered it; no prior episodes like this Patient denies NSAID, alcohol use; endorses marijuana use last night Hgb 15.5 and HCT 47.6 on arrival Repeat hemoglobin has been stable. Abdomen/pelvic CT revealed NAF (no CT evidence of GI bleed) LFTs WNL PT/INR WNL Lipase WNL BUN/Cr 11.8 advacend diet to low fiber, hemoglobin remained stable. Continue pantoprazole 40 mg IV BID (2) Bradycardia: EKG revealed marked sinus bradycardia at 40 bpm; QTc 397 Total Time Total Time Spent Total Time Spent (In Minutes): 32 Discharge Plan Discharge Items Patient Disposition: Home - Self-Care Reason For Visit: VOMITING BLOOD Discharge Diagnosis: vomiting blood Activity: Resume your previous activity Non-emergency contact: Primary Care Provider Call non-emergency contact if: you have any medication questions Follow-up/Referrals: Kade Mo, [Physician] - 03/12/23 11:00 am (This will be for a new patient appointment and hopsital follow up. Please arrive at 1045 to Entrance 1. Please bring your photo ID and insurance with you. ) PCP,NO [Primary Care Provider] - Diet: Regular Addtl Attending Provider Instructions: Followup with Gastroenterology on March 24. Continue pantoprazole in the short term. This will likely not be tapered off after your followup with Gastroenterology. Pending Studies at Discharge: No Stand-Alone Forms: My [facility] Standard[employer]ine, Smoking Cessation Medications and DC Order Prescriptions: New pantoprazole 40 mg tablet,delayed release (DR/EC) 40 mg PO BID Qty: 60 0RF Discharge Orders: Discharge Order (Routine); Ordered 03/05/23 Ordered By: Herber Mcadams Admission Data Admit Date/Time: 03/03/23 17:37 Attending Provider: Herber Mcadams Admit Provider: Gregory Etienne Primary Care Provider: PCP,NO Other Providers: Gregory Etienne; Daren Vasquez; Rosales Lagos; Monique Marquez; Brunilda Enrique; Elise Ramirez; Romain Oneal; Kirby Perdue; Yuri Pardo; Allan Mcdonald; Agustín Rolon; Will Head; Vicki Oneal; Denisse Jones; Kinga Bynum; Ashanti Sorensen; Reymundo Resendiz; Damion Leiva; Brayden Wilson Jr Other Interventions: Discharge Summary Assessment (RN) Last Done: 03/05/23 11:01 Coding Level of Care Code 95215 INP/OBS DISCH >30 MIN Diagnoses Vomiting blood K92.0 Bradycardia R00.1
--- NOTE | 2023-03-06 05:30 | Electrocardiogram Report ---
Test Reason : Blood Pressure : / mmHG Vent. Rate : 040 BPM Atrial Rate : 040 BPM P-R Int : 172 ms QRS Dur : 090 ms QT Int : 488 ms P-R-T Axes : 070 056 057 degrees QTc Int : 397 ms Marked sinus bradycardia Possible Septal infarct , age undetermined Abnormal ECG No previous ECGs available Confirmed by Isaías Corcoran ([id number]) on 03/06/2023 5:29:54 AM Referred By: Confirmed By:Isaías Corcoran
== END 2023-03-05 11:16 | disposition home or self-care (01) | DRG 379 ==
LOC: ED 14:58 → SUATTDRO 17:37 → EDINP 17:37 → 2N 19:27